=== PATIENT | female | born 1960 | race Caucasian/White ===

== ENCOUNTER 2022-07-26 05:06 | Emergency (ER) | payer BC, MEDICAID ==
[~2022-07-26] VITALS: Ht 160 cm; Wt 63.6 kg
[~2022-07-26 05:06] MED LIST: ADV50250 IH; BENA20TA82 PO; CLON-528 PO; HYDR1TAB69 PO; IBUP-1051 PO; IBUP-1984 PO; MONT10TA21 PO; PRED20TA PO; SERT25TA PO; WEL100T PO; [UNRECOGNIZED DRUG - CODE] PO
[2022-07-26] MEDS ORDERED: valacyclovir 500mg tablet PO ONE (05:30)
[2022-07-26] MEDS ORDERED: pregabalin 75mg capsule PO ONE (05:30)
[2022-07-26] MEDS ORDERED: PREG50CA PO (05:35)
[2022-07-26] MEDS ORDERED: HYDR-3965 PO (05:35)
[2022-07-26] MEDS ORDERED: VALA100031 PO (05:35)
[2022-07-26 06:04] VITALS: BP 177/98
== END 2022-07-26 06:31 | disposition home or self-care (01) ==
LOC: ER 05:07
DX: B02.9 Zoster without complications (principal); J44.9 Chronic obstructive pulmonary disease, unspecified; F31.9 Bipolar disorder, unspecified; I10 Essential (primary) hypertension; Z79.899 Other long term (current) drug therapy; Z88.2 Allergy status to sulfonamides; Z88.1 Allergy status to other antibiotic agents; Z79.1 Long term (current) use of non-steroidal anti-inflammatories (NSAID)
CPT/HCPCS: 99283